=== PATIENT | male | born 1995 ===

== ENCOUNTER 2017-10-11 21:13 | Emergency (ER) | payer OTHER ==
--- NOTE | 2017-10-11 21:56 | UC ---
Lower Extremity/Ankle HPI - HPI Summary HPI Summary: Pt presents with right big toe pain. He tells me that about 1 hour [employer] he was practicing judo with a friend and was kicked in the foot - his right toe flexed and his right great toenail began to turn dark purple in color. He is able to ambulate with assistance. He came to urgent care directly after this event. - History of Current Complaint Hx Obtained From: Patient Onset/Duration: Sudden Onset Severity Initially: Moderate Severity Currently: Moderate Pain Intensity: 7 Pain Scale Used: 0-10 Numeric Aggravating Factor(s): Standing, Ambulation Alleviating Factor(s): Rest, Elevation Able to Bear Weight: Yes <Vinnie Barger - Last Filed: 10/12/17 18:11> <Stefani Pressley - Last Filed: 10/13/17 06:44> - History of Current Complaint Chief Complaint: UCLowerExtremity Stated Complaint: FOOT COMPLAINT Time Seen by Provider: 10/11/17 21:46 - Allergies/Home Medications Allergies/Adverse Reactions: Allergies Allergy/AdvReac Type Severity Reaction Status Date / Time No Known Allergies Allergy Verified 10/11/17 21:25 Home Medications: Home Medications NK [No Home Medications Reported] 10/11/17 [History Confirmed 10/11/17] PMH/Surg Hx/FS Hx/Imm Hx Previously Healthy: Yes - Surgical History Surgical History: None - Social History Alcohol Use: None Substance Use Type: None Smoking Status (MU): Never Smoked Tobacco <Vinnie Barger - Last Filed: 10/12/17 18:11> Review of Systems Constitutional: Negative Skin: Negative, Other Respiratory: Negative Cardiovascular: Negative Musculoskeletal: Other: - Right great toe pain Neurological: Negative Psychological: Negative All Other Systems Reviewed And Are Negative: Yes <Vinnie Barger - Last Filed: 10/12/17 18:11> Physical Exam Triage Information Reviewed: Yes Appearance: Well-Appearing, No Pain Distress, Well-Nourished Vital Signs: Initial Vital Signs Temp 98.2 F 10/11/17 21:21 Pulse 102 10/11/17 21:21 Resp 20 10/11/17 21:21 BP 99/32 10/11/17 21:21 Pulse Ox 97 10/11/17 21:21 Vital Signs Reviewed: Yes Respiratory: Positive: Lungs clear, Normal breath sounds, No respiratory distress Cardiovascular: Positive: RRR, No Murmur, Pulses Normal, Brisk Capillary Refill - Distal right great toe Musculoskeletal: Positive: Strength Intact - Right foot, ROM Intact - Right foot and all toes, No Edema - Right great toe, Other: - TTP over right great toenail. No pain on the joint space or tuft. No obvious bony deformity. Neurological: Positive: Alert, Other: - Sensations intact right foot and all toes Psychological: Positive: Age Appropriate Behavior Skin: Positive: Other - Right great toenail is dark purple in color. No edema, surround ecchymosis or erythema. No open wounds. <Vinnie Barger - Last Filed: 10/12/17 18:11> Vital Signs: Initial Vital Signs Temp 98.2 F 10/11/17 21:21 Pulse 102 10/11/17 21:21 Resp 20 10/11/17 21:21 BP 99/32 10/11/17 21:21 Pulse Ox 97 10/11/17 21:21 <Stefani Pressley - Last Filed: 10/13/17 06:44> Lower Extremity Course/Dx - Course Course Of Treatment: Right great toe subungual hematoma. A time out was performed, witnessed, and signed. Pt tolerated procedure well. Nail bed trephination was performed with cautery. Blood was able to be expressed and pt experienced great relief. Mild pain on toenail after blood expression. Pt tolerated well. He refused XR of his toe saying "i don't think it's broken". I advised that he alisha tape his great toe to the adjacent toe and ice the area. - Differential Dx/Diagnosis Provider Diagnoses: Right great toe subungual hematoma <Vinnie Barger - Last Filed: 10/12/17 18:11> Discharge <Vinnie Barger - Last Filed: 10/12/17 18:11> <Stefani Pressley - Last Filed: 10/13/17 06:44> - Discharge Plan Condition: Stable Disposition: HOME Patient Education Materials: Subungual Hematoma (ED) Referrals: No Primary Care Phys,NOPCP [Primary Care Provider] - Additional Instructions: If you develop a fever, shortness of breath, chest pain, new or worsening symptoms - please call your PCP or go to the ED. 1) Keep the area bandaged when active with a band-aid. Return for any worsening or continuing symptoms. Attestation Statement User Type: Provider - I was available for consult. This patient was seen by the advanced practice provider. The patient was not presented to, seen by, or examined by me.-Nataliia <Stefani Pressley - Last Filed: 10/13/17 06:44>
== END 2017-10-11 22:12 | disposition home or self-care (01) ==
LOC: UCEAST 21:13
DX: S90.211A Contusion of right great toe with damage to nail, initial encounter (principal); W50.0XXA Accidental hit or strike by another person, initial encounter; Y93.75 Activity, martial arts; Y92.39 Other specified sports and athletic area as the place of occurrence of the external cause
CPT/HCPCS: 11740; 99201; G0463